=== PATIENT | female | born 1955 | race Caucasian/White ===

== ENCOUNTER 2019-03-13 12:22 | Outpatient (CLI) | payer BC, SELFPAY ==
--- NOTE | 2019-03-13 13:00 | MM_ITS ---
WS: [id number] BILATERAL DIGITAL SCREENING MAMMOGRAPHY WITH CAD CLINICAL INFORMATION: SCREENING HISTORY: Screening mammogram. Right breast soreness. COMPARISON: TECHNIQUE: Bilateral CC and MLO views. FINDINGS: Scattered fibroglandular densities bilaterally. Stable biopsy marker right breast. No suspicious foca l mass, asymmetry, calcifications, or architectural distortion. No evidence of malignancy. MM/[id number] IMPRESSION: BI-RADS: 2-Benign FOLLOW UP: 1 Year Follow-up Recommend return to annual screening mammography.
== END 2019-03-13 12:23 | disposition home or self-care (01) ==
LOC: RADSHAW 12:27
PROVIDERS: Family Provider Family Medicine; PCP Family Medicine; Visit Provider Family Medicine
DX: Z12.31 Encounter for screening mammogram for malignant neoplasm of breast (principal)
CPT/HCPCS: 77067

== ENCOUNTER 2019-04-16 07:07 | Outpatient (CLI) | payer BC, SELFPAY ==
--- NOTE | 2019-04-16 07:15 | XRR_ITS ---
PROCEDURE INFORMATION: Exam: XR Abdomen, 1 View Exam date and time: 04/16/2019 7:27 AM Age: 64 years old Clinical indication: Abd pain; Renal and ureteric calculus TECHNIQUE: Imaging protocol: XR of the abdomen. Views: Frontal supine view of the abdomen. 1 View. COMPARISON: XR ABDOMEN 04/16/2018 8:33 AM FINDINGS: Gastrointestinal tract: No dilated gas-filled loops of bowel. Organs: Clips in the right upper quadrant compatible with a prior cholecystectomy. There is a 3 mm calcific density overlying the inferior pole of the right kidney compatible with right nephrolithiasis. Cannot exclude a distal right ureteral calculus versus small phleboliths in the right pelvis. Bones/joints: Degenerative changes in the lower lumbar spine. XR/XR KUB [id number] IMPRESSION: 1. Right nephrolithiasis. 2. Cannot exclude a distal right ureteral calculus.
== END 2019-04-16 07:08 | disposition home or self-care (01) ==
LOC: RAD 07:13
PROVIDERS: Family Provider Family Medicine; PCP Family Medicine; Visit Provider Urology
DX: N20.2 Calculus of kidney with calculus of ureter (principal)
CPT/HCPCS: 74018; 81001

== ENCOUNTER 2020-04-13 12:21 | Outpatient (CLI) | payer MEDICARE, BC, SELFPAY ==
--- NOTE | 2020-04-13 12:45 | MM_ITS ---
WS: [id number] BILATERAL DIGITAL SCREENING MAMMOGRAPHY WITH CAD CLINICAL INFORMATION: SCREEN HISTORY: Screening mammogram. No current complaints. COMPARISON: March 13, 2019 TECHNIQUE: Bilateral CC and MLO views. FINDINGS: Scattered fibroglandular densities bilaterally. No suspicious focal mass, asymmetry, calcifications, or architectural distortion. No evidence of malignancy. Biopsy clip right breast. Punctate Calcificat ions. MM/[id number] IMPRESSION: BI-RADS: 2-Benign FOLLOW UP: 1 Year Follow-up Recommend return to annual screening mammography.
== END 2020-04-13 12:22 | disposition home or self-care (01) ==
LOC: RADSHAW 12:24
PROVIDERS: PCP Family Medicine; Visit Provider Family Medicine
DX: Z12.31 Encounter for screening mammogram for malignant neoplasm of breast (principal)
CPT/HCPCS: 77067

== ENCOUNTER 2021-04-18 12:08 | Outpatient (CLI) | payer MEDICARE, BC, SELFPAY ==
--- NOTE | 2021-04-18 12:18 | XRR_ITS ---
PROCEDURE INFORMATION: Exam: XR Abdomen Exam date and time: 04/18/2021 12:18 PM Age: 66 years old Clinical indication: Condition or disease; Kidney or ureter condition; Calculus (stone) in kidney and calculus (stone) in ureter; Prior surgery; Surgery type: Gb; Additional info: Stone, bernadette hinds 04/18/21 @ 12:30 pm appt to follow TECHNIQUE: Imaging protocol: XR of the abdomen. Views: Frontal supine view of the abdomen. 1 View. COMPARISON: CR XR KUB [id number] 04/16/2019 7:21 AM FINDINGS: Gastrointestinal tract: Normal. No bowel dilation. Evidence of cholecystectomy Organs: The bilateral kidneys are obscured by colonic contents. Previously noted right renal stone is no longer visible. The left kidney is partially visualized and does not show focal abnormality. Examination is negative for calcified stones in the projection of the urinary outflow tracts. Bones/joints: Unremarkable. XR/XR KUB [id number] IMPRESSION: 1. No acute findings. 2. Status post cholecystectomy 3. Negative for visible radiodense urinary tract stone
== END 2021-04-18 12:09 | disposition home or self-care (01) ==
LOC: RAD 12:14
PROVIDERS: PCP Family Medicine; Visit Provider Urology
DX: N20.0 Calculus of kidney (principal)
CPT/HCPCS: 74018; 81003

== ENCOUNTER 2021-06-09 11:11 | Outpatient (CLI) | payer MEDICARE, BC, SELFPAY ==
--- NOTE | 2021-06-09 11:23 | MM_ITS ---
WS: [id number] BILATERAL SCREENING 3D TOMOSYNTHESIS DIGITAL MAMMOGRAM WITH CAD HISTORY: SCREENING COMPARISON: 04/13/2020, 11/23/2016 and 03/13/2019 Bilateral CC and MLO views submitted. Computer aided detection analyzed. Breast composition: There are scattered areas of fibroglandular density. No suspicious masses, microc alcifications or architectural distortion. Biopsy clip 12:00 RIGHT breast at a posterior depth is unc hanged. 5 mm nodule upper outer quadrant RIGHT breast has been present on prior examinations. LEFT br east is negative. MM/[id number] IMPRESSION: BI-RADS: 2-Benign FOLLOW UP: 1 Year Follow-up
== END 2021-06-09 11:12 | disposition home or self-care (01) ==
PROVIDERS: PCP Family Medicine; Visit Provider Family Medicine
DX: Z12.31 Encounter for screening mammogram for malignant neoplasm of breast (principal)
CPT/HCPCS: 77063; 77067

== ENCOUNTER 2022-06-09 13:02 | Outpatient (CLI) | payer MEDICARE, SELFPAY ==
--- NOTE | 2022-06-09 13:11 | XR_ITS ---
WS: [id number] DEXA (DUAL ENERGY X-RAY ABSORPTIOMETRY) Bone mineral density was performed using a OrbFlex machine. HISTORY: Asymptomatic MENOPAUSAL STATE COMPARISON: None available. Lumbar spine BMD (L1-L4): 1.025 g/cm2 T score: -1.3 Z score: 0.0 Total hip BMD: Left: 0.901 g/cm2. T score: -0.8 Z score: 0.2 Right: 0.875 g/cm2. T score: -1.1 Z score: 0.0 10 year probability of a major osteoporotic fracture is 20.6%. XR/XR DEXA axial skeleton* [id number] IMPRESSION: OSTEOPENIA based upon the WHO classification for females.
--- NOTE | 2022-06-09 13:24 | MM_ITS ---
WS: [id number] BILATERAL SCREENING DIGITAL TOMOSYNTHESIS MAMMOGRAM WITH CAD HISTORY: SCREENING COMPARISON: 06/09/2021, 04/13/2020 and 03/13/2019 Bilateral CC and MLO views with tomosynthesis and synthetic mammography submitted. Computer aided det ection analyzed. Breast composition: There are scattered areas of fibroglandular density. No suspicious masses, microc alcifications or architectural distortion. Benign biopsy clip 12:00 RIGHT breast reidentified. No inc rease in size of the adjacent soft tissue. Benign calcifications. MM/[place] [id number] IMPRESSION: BI-RADS: 2-Benign FOLLOW UP: 1 Year Follow-up
== END 2022-06-09 13:03 | disposition home or self-care (01) ==
PROVIDERS: PCP Family Medicine; Visit Provider Nurse Practitioner Family
DX: Z12.31 Encounter for screening mammogram for malignant neoplasm of breast (principal); Z78.0 Asymptomatic menopausal state
CPT/HCPCS: 77063; 77067; 77080

== ENCOUNTER → 2022-08-25 09:48 | Outpatient (BNVA) | payer MEDICARE, BC, SELFPAY | PROVIDERS: PCP Family Medicine; Visit Provider Dermatology | DX: L92.0 Granuloma annulare (principal) | CPT/HCPCS: 11900 ==

== ENCOUNTER → 2022-10-09 15:53 | Outpatient (BNVA) | payer MEDICARE, BC, SELFPAY | PROVIDERS: PCP Family Medicine; Visit Provider Dermatology | DX: L92.0 Granuloma annulare (principal); L82.1 Other seborrheic keratosis; L57.0 Actinic keratosis | CPT/HCPCS: 17000; 17003; 99213 ==

== ENCOUNTER 2022-11-21 13:42 | Outpatient (CLI) | payer MEDICARE, BC, SELFPAY ==
--- NOTE | 2022-11-21 13:53 | CT_ITS ---
WS: [email or web address] CT SINUSES TECHNIQUE: Noncontrast CT of the paranasal sinuses with coronal and sagittal reformatted images. CLINICAL INFORMATION: CHRONIC SINUSITIS/HEADACHE COMPARISON: None. DLP: [address] scans at [facility] use at least one of these dose optimization techniques: automated e xposure control; mA and/or kV adjustment per patient size (includes targeted exams where dose is matc hed to clinical indication); or iterative reconstruction. FINDINGS: LEFT to RIGHT nasal septal deviation measuring 7 mm with rightward directed spur. Mild narrowing of t he ostiomeatal units bilaterally which remain patent. Paranasal sinuses are well aerated. Frontal sin uses are well aerated. Trace mucosal thickening ethmoid air cells. Maxillary sinuses well aerated. Sp henoid sinuses are patent. Sphenoid ostia are patent. Mastoid air cells are well aerated. Posterior nasopharynx appears normal. Mild cavernous carotid calcification. IMPRESSION: 1. LEFT RIGHT nasal septal deviation measuring 7 mm with rightward directed spur. 2. Paranasal sinuses are well aerated. 3. Mastoid air cells are well aerated.
== END 2022-11-21 13:43 | disposition home or self-care (01) ==
PROVIDERS: PCP Family Medicine; Visit Provider Nurse Practitioner Family
DX: J32.9 Chronic sinusitis, unspecified (principal); J34.2 Deviated nasal septum; J34.89 Other specified disorders of nose and nasal sinuses
CPT/HCPCS: 70486

== ENCOUNTER 2022-12-21 13:08 | Outpatient (CLI) | payer MEDICARE, BC, SELFPAY ==
--- NOTE | 2022-12-21 13:13 | CT_ITS ---
WS: [email or web address] CT HEAD TECHNIQUE: Noncontrast CT of the head obtained from the skullbase to the vertex. CLINICAL INFORMATION: CHRONIC R SIDED HEADACHES/VISION CHANGES COMPARISON: None. DLP: 1034.[address] scans at [facility] use at least one of these dose optimization techniques: automated e xposure control; mA and/or kV adjustment per patient size (includes targeted exams where dose is matc hed to clinical indication); or iterative reconstruction. FINDINGS: No evidence of intracranial hemorrhage or mass effect. Ventricular system and basal cisterns are iglesias nt. Mild small vessel changes with mild parenchymal volume loss. No extra-axial fluid collections. No evidence of mass or mass effect. Paranasal sinuses and mastoid air cells are well aerated. .Normal visualized soft tissues. IMPRESSION: 1. No evidence of intracranial hemorrhage or mass effect. 2. Mild small vessel changes with mild parenchymal volume loss. 3. No acute intracranial findings.
== END 2022-12-21 13:09 | disposition home or self-care (01) ==
LOC: RAD 13:09
PROVIDERS: PCP Family Medicine; Visit Provider Nurse Practitioner Family
DX: R51.9 Headache, unspecified (principal); H53.9 Unspecified visual disturbance
CPT/HCPCS: 70450

== ENCOUNTER → 2023-01-23 13:38 | Outpatient (BNVA) | payer MEDICARE, BC, SELFPAY | PROVIDERS: PCP Family Medicine; Visit Provider Dermatology | DX: L92.0 Granuloma annulare (principal); L82.1 Other seborrheic keratosis; L71.8 Other rosacea | CPT/HCPCS: 99214 ==

== ENCOUNTER 2023-06-11 09:37 | Outpatient (CLI) | payer MEDICARE, BC, SELFPAY ==
--- NOTE | 2023-06-11 09:40 | MM_ITS ---
WS: [email or web address] BILATERAL 3D TOMOSYNTHESIS DIGITAL SCREENING MAMMOGRAPHY WITH CAD CLINICAL INFORMATION: SCREENING HISTORY: Screening mammogram. No current complaints. COMPARISON: 2022 TECHNIQUE: Bilateral CC and MLO views. FINDINGS: Scattered fibroglandular densities bilaterally. No suspicious focal mass, asymmetry, calcifications, or architectural distortion. No evidence of malignancy. A few incidental punctate and lucent centered calcifications. Biopsy marker RIGHT breast unchanged. IMPRESSION: MM/[place] [id number] BI-RADS: 2-Benign FOLLOW UP: 1 Year Follow-up Recommend return to annual screening mammography.
== END 2023-06-11 09:38 | disposition home or self-care (01) ==
LOC: RAD 09:37
PROVIDERS: PCP Family Medicine; Visit Provider Nurse Practitioner Family
DX: Z12.31 Encounter for screening mammogram for malignant neoplasm of breast (principal)
CPT/HCPCS: 77063; 77067

== ENCOUNTER → 2023-10-24 13:03 | Outpatient (BNVA) | payer MEDICARE, BC, SELFPAY | PROVIDERS: PCP Family Medicine; Visit Provider Dermatology | DX: L92.0 Granuloma annulare (principal); L82.1 Other seborrheic keratosis; D48.5 Neoplasm of uncertain behavior of skin; L81.5 Leukoderma, not elsewhere classified; L81.4 Other melanin hyperpigmentation | CPT/HCPCS: 11102; 11900; 99214 ==

== ENCOUNTER → 2023-12-28 08:23 | Outpatient (BNVA) | payer MEDICARE, BC, SELFPAY | PROVIDERS: PCP Family Medicine; Referring Provider Nurse Practitioner Family; Visit Provider Student in an Organized Health Care Education/Training Program | DX: Z12.11 Encounter for screening for malignant neoplasm of colon (principal) | CPT/HCPCS: 99024; 99204 ==

== ENCOUNTER 2024-01-06 14:07 | Emergency (ER) | payer MEDICARE, BC, SELFPAY ==
[2024-01-06 14:18] VITALS: BP 162/79; PULSE 77; RESP 17; TEMP 36.6; O2SAT 97; BMI 27.4
--- NOTE | 2024-01-06 15:14 | CTR_ITS ---
PROCEDURE INFORMATION: Exam: CT Abdomen And Pelvis With Contrast Exam date and time: 01/06/2024 5:13 PM Age: 68 years old Clinical indication: Abdominal pain; Localized; Lower; Prior surgery; Surgery date: 6+ months; Surgery type: Gb; Additional info: Abd pain TECHNIQUE: Imaging protocol: Computed tomography of the abdomen and pelvis with contrast. Radiation optimization: All CT scans at this facility use at least one of these dose optimization techniques: automated exposure control; mA and/or kV adjustment per patient size (includes targeted exams where dose is matched to clinical indication); or iterative reconstruction. Contrast material: OMNI 350; Contrast volume: 100 ml; Contrast route: INTRAVENOUS (IV); COMPARISON: CT kidney stone [id number] 12/01/2017 1:43 PM RADIATION DOSE METRICS: Total DLP (mGy-cm): 540.31 FINDINGS: Coronary arteries: Coronary arterial calcifications are demonstrated. Diaphragm: Small hiatal hernia is demonstrated within the lower mediastinum. Liver: Well-defined and simple appearing incidental hepatic lesion most compatible with a cyst. Liver cyst measurement and location: Cyst within the superolateral left hepatic lobe measuring 27 mm on axial image 15. Liver demonstrates diffuse mild hypodensity. Gallbladder and biliary ducts: The gallbladder has been surgically removed. Surgical clips identified in the gallbladder fossa. No evidence for biliary dilatation. Pancreas: Unremarkable. Spleen: Unremarkable. No splenomegaly. Adrenal glands: Normal. No mass. Kidneys and ureters: Unremarkable. No hydronephrosis or calculi. Stomach and bowel: Severely prominent fluid identified within the bowel, colon and rectum, suggesting severe diarrheal state. Findings compatible with severe infectious or inflammatory gastroenteritis, colitis with wall thickening. Wall thickening identified throughout the large and small bowel with enhancement. Colonic diverticulosis identified, with greatest involvement within the left colon and sigmoid colon regions. No definite visible evidence for focal acute diverticulitis. Appendix: The visualized appendix appears unremarkable. Intraperitoneal space: Diffuse mild generalized abdominal pelvic mesenteric edema. Vasculature: Unremarkable. No abdominal aortic aneurysm. Lymph nodes: No enlarged lymph nodes. Urinary bladder: Unremarkable as visualized. Reproductive: Unremarkable as visualized. Bones/joints: No acute bony abnormality. Mild to moderate generalized bony degenerative changes. Soft tissues: Unremarkable. Other findings: This study is limited by patient's body habitus. CT/CT abdomen pelvis w con* [id number] IMPRESSION: 1. Findings compatible with severe diarrheal state, infectious or inflammatory gastroenteritis and colitis. 2. Hepatic cyst. Possible mild hepatic steatosis. Consider correlation with liver function tests. 3. Colonic diverticulosis. 4. Small sized hiatal hernia.
--- NOTE | 2024-01-06 15:18 | ED_ITS ---
HPI - Abdominal Pain 2 General: Chief Complaint: Abdominal Pain Stated Complaint: tight feeling lower abd, nausua, diarrhea Time Seen by Provider: 01/06/24 15:15 Source: patient Mode of arrival: ambulatory Limitations: no limitations History of Present Illness: 68-year-old female who states that since Sunday she has been having nausea along with some abdominal cramping with some slight diarrhea she states that the cramping sensation seems to come and go she is concerned that she may have a bowel obstruction. She denies any fever she states she has had issues in the past actually scheduled to have EGD and colonoscopy on Sunday on the Associated Symptoms: Reports diarrhea and nausea; Denies chills, dysuria, fever(s) and vomiting Related Data Home Medications Medication Instructions Recorded Confirmed alprazolam 0.5 mg tablet 0.5 mg PO DAILY PRN 04/16/19 12/28/23 aspirin 81 mg tablet,delayed 81 mg PO DAILY 04/16/19 12/28/23 release (Adult Low Dose Aspirin) bupropion HCl 150 mg 24 hr tablet, 150 mg PO BID 04/16/19 12/28/23 extended release cetirizine 10 mg capsule (All Day 10 mg PO DAILY 04/16/19 12/28/23 Allergy (cetirizine)) cranberry concentrate-ascorbic cap PO 04/16/19 12/28/23 acid 140 mg-100 mg capsule (Cranberry Plus Vitamin C) cyclobenzaprine 10 mg tablet 10 mg PO DAILY PRN 04/16/19 12/28/23 glipizide 5 mg tablet 5 mg PO DAILY 04/16/19 12/28/23 lansoprazole 15 mg capsule,delayed 15 mg PO DAILY 04/16/19 12/28/23 release lisinopril 5 mg tablet 5 mg PO DAILY 04/16/19 12/28/23 metformin 500 mg tablet 500 mg PO BID 04/16/19 12/28/23 metoprolol tartrate 25 mg tablet 25 mg PO DAILY 04/18/21 12/28/23 Previous Rx's Medication Instructions Recorded clobetasol 0.05 % topical ointment 1 applic topical BID 2 weeks #60 11/08/22 grams ciprofloxacin HCl 500 mg tablet 500 mg PO BID #14 tabs 01/06/24 (Cipro) metronidazole 500 mg tablet 500 mg PO Q8H 7 days #21 tabs 01/06/24 Allergies Allergy/AdvReac Type Severity Reaction Status Date / Time cefuroxime Allergy Unknown Unknown Verified 01/06/24 14:22 erythromycin base Allergy Unknown Unknown Verified 01/06/24 14:22 codeine Allergy ADR-Gastrointestinal Verified 01/06/24 14:22 Upset hydrochlorothiazide Allergy ADR-Dizzine Verified 01/06/24 14:22 ss Review of Systems 2 Const: Denies: fever(s), chills, body aches or change in appetite ENMT: Denies: throat pain or dental pain Card: Denies: chest pain Resp: Denies: dyspnea GI: Reports: abdominal pain, nausea and diarrhea; Denies: vomiting : Denies: dysuria Musc: Denies: neck pain or back pain Skin/Breast: Denies: rash Neuro: Denies: headache(s) PFSH ED 2 PFSH: Medical History Feeling of incomplete bladder emptying Right renal stone Renal and ureteric calculus Surgical History H/O rectocele repair Hx of cholecystectomy Hx of tubal ligation Family History Mother , AT AGE 81 Stroke Cancer stomach Father , AT AGE 74 Cancer STOMACH Lung disease COPD Other COPD (chronic obstructive pulmonary disease) Social History Smoking and tobacco/nicotine status: never used tobacco/nicotine Alcohol intake: never Substance/Drug Use: never Adopted: No Caregiver/support person: No Lives independently: No Household members: spouse Marital status: Current occupational status: retired Physical Exam 2 Const: COMMON NORMALS: no acute distress, patient oriented x3 and healthy appearing HENMT: COMMON NORMALS: normocephalic and atraumatic HEAD & SCALP: n ormocephalic and atraumatic Eye: COMMON NORMALS: conjunctivae normal CONJUNCTIVA: Yes conjunctivae normal Neck/C-Spine: COMMON NORMALS: full ROM and supple Chest: COMMONS NORMALS: normal inspection of the chest Resp: COMMON NORMALS: normal respiratory effort Cardio: COMMON NORMALS: regular rate, regular rhythm and No murmurs present (Cardio) RATE: regular rate RHYTHM: regular rhythm GI: COMMON NORMALS: Normal to inspection, nondistended, normoactive bowel sounds present, Soft to palpation, non-tender and no masses PALPATION: Yes Soft to palpation Extremity: COMMON NORMALS: normal to inspection and full ROM Neuro: COMMON NORMALS: patient oriented x3, moves all extremities and no focal motor deficits Psych: COMMON NORMALS: mental status grossly normal, Normal thought process present and cooperative THOUGHT PROCESS: Normal thought process present Skin: COMMON NORMALS: no rashes or lesions noted and no wounds GENERAL SKIN EXAM: no rashes or lesions noted Course 2 Vital Signs: Vital signs: Vital Signs Temperature 97.9 F 01/06/24 14:18 Pulse Rate 77 01/06/24 14:18 Respiratory Rate 18 01/06/24 16:01 Blood Pressure 162/79 01/06/24 14:18 Pulse Oximetry 97 01/06/24 14:18 Oxygen Delivery Me thod Room Air 01/06/24 14:18 MDM - Abdominal Pain Medical Decision Making Patient presents with diarrhea CT shows a colitis we will start her on Cipro and Flagyl she is scheduled for colonoscopy on the follow-up as scheduled return to ER if worsening she understands agrees to plan. Medical Records I reviewed the patient's medical records. Lab Data I reviewed the patient's lab results. 01/06/24 15:17 01/06/24 15:17 Labs/Radiology: Radiology Impressions Abdomen/Pelvis CT 01/06/24 15:14 IMPRESSION: 1. Findings compatible with severe diarrheal state, infectious or inflammatory gastroenteritis and colitis. 2. Hepatic cyst. Possible mild hepatic steatosis. Consider correlation with liver function tests. 3. Colonic diverticulosis. 4. Small sized hiatal hernia. Laboratory Results WBC 5.53 10^3/uL (3.29-11.43) 01/06/24 15:17 RBC 4.79 10^6/uL (3.85-5.65) 01/06/24 15:17 Hgb 13.00 g/dL (11.27-16.99) 01/06/24 15:17 Hct 40.5 % (36-47) 01/06/24 15:17 MCV 84.6 fl (85-98) L 01/06/24 15:17 MCH 27.1 pg (27-33) 01/06/24 15:17 MCHC 32.1 g/dL (30-55) 01/06/24 15:17 RDW 13.5 % (12.1-15.1) 01/06/24 15:17 Plt Count 300 10^3/cmm (157-399) 01/06/24 15:17 MPV 9.5 fL (7.4-10.4) 01/06/24 15:17 Neut % (Auto) 37.3 % 01/06/24 15:17 Lymph % (Auto) 46.8 % 01/06/24 15:17 [place] % (Auto) 13.7 % 01/06/24 15:17 Eos % (Auto) 1.6 % 01/06/24 15:17 Baso % (Auto) 0.4 % 01/06/24 15:17 Neut # (Auto) 2.06 10^3/uL (1.8-7.7) 01/06/24 15:17 Lymph # (Auto) 2.6 10^3/uL (0.8-4.8) 01/06/24 15:17 [place] # (Auto) 0.8 10^3/uL (0.2-0.9) 01/06/24 15:17 Eos # (Auto) 0.1 10^3/uL (0.0-0.8) 01/06/24 15:17 Baso # (Auto) 0.0 10^3/uL (0.0-0.1) 01/06/24 15:17 Nucleated RBC % (auto) 0 % 01/06/24 15:17 Nucleated RBCs # 0.0 /100WBC 01/06/24 15:17 Sodium 142 mmol/L (136-145) 01/06/24 15:17 Potassium 4.3 mmol/L (3.5-5.1) 01/06/24 15:17 Chloride 105 mmol/L (98-107) 01/06/24 15:17 Carbon Dioxide 24 mmol/L (22-29) 01/06/24 15:17 Anion Gap 17.3 (5-19) 01/06/24 15:17 BUN 9 mg/dL (8-23) 01/06/24 15:17 Creatinine 0.9 mg/dL (0.5-0.9) 01/06/24 15:17 GFR Calculation 62.3 mL/min (90-130) L 01/06/24 15:17 Glucose 211 mg/dL (65-115) H 01/06/24 15:17 Calculated Osmolality 299 mOsm/kg (285-295) H 01/06/24 15:17 Calcium 9.1 mg/dL (8.5-10.5) 01/06/24 15:17 Total Bilirubin 0.2 mg/dL (0.15-1.2) 01/06/24 15:17 AST 24 U/L (0-32) 01/06/24 15:17 ALT 19 U/L (0-33) 01/06/24 15:17 Alkaline Phosphatase 99 U/L (35-105) 01/06/24 15:17 Total Protein 7.1 g/dL (6.6-8.7) 01/06/24 15:17 Albumin 4.5 g/dL (3.5-5.2) 01/06/24 15:17 Globulin 2.6 g/dL (1.3-4.6) 01/06/24 15:17 Lipase 25 U/L (13-60) 01/06/24 15:17 Urine Color Yellow (Yellow) 01/06/24 17:00 Urine Appearance Clear (CLEAR) 01/06/24 17:00 Urine pH 5.5 (5-7) 01/06/24 17:00 Ur Specific [place] 1.081 (1.005-1.030) H 01/06/24 17:00 Urine Protein Negative (Negative) 01/06/24 17:00 Urine Glucose (UA) Negative (Normal) 01/06/24 17:00 Urine Ketones Negative (Negative) 01/06/24 17:00 Urine Blood Negative (Negative) 01/06/24 17:00 Urine Nitrate Negative (Negative) 01/06/24 17:00 Urine Bilirubin Negative (Negative) 01/06/24 17:00 Urine Urobilinogen 0.2 mg/dL (Negative) 01/06/24 17:00 Ur Leukocyte Esterase Negative (Negative) 01/06/24 17:00 Urine RBC 0-2 /hpf (0-2) 01/06/24 17:00 Urine WBC 0-5 /hpf (0-5) 01/06/24 17:00 Ur Squamous Epith Cells 0-5 /hpf (0-5) 01/06/24 17:00 Amorphous Sediment Not Reportable 01/06/24 17:00 Urine Bacteria None seen /hpf (NONE) 01/06/24 17:00 Hyaline Casts 0-4 /lpf H 01/06/24 17:00 All radiology interpretation(s) finalized by discharge Discharge Plan Discharge Patient Disposition: Home Clinical Impression: Colitis, Diarrhea Condition: Stable Prescriptions: New metronidazole 500 mg tablet 500 mg PO Q8H 7 Days Qty: 21 0RF ciprofloxacin HCl [Cipro] 500 mg tablet 500 mg PO BID Qty: 14 0RF No Action metoprolol tartrate 25 mg tablet 25 mg PO DAILY metformin 500 mg tablet 500 mg PO BID glipizide 5 mg tablet 5 mg PO DAILY bupropion HCl 150 mg tablet extended release 24 hr 150 mg PO BID Cranberry Plus Vitamin C 140-100 mg capsule PO aspirin [Adult Low Dose Aspirin] 81 mg tablet,delayed release (DR/EC) 81 mg PO DAILY lisinopril 5 mg tablet 5 mg PO DAILY lansoprazole 15 mg capsule,delayed release(DR/EC) 15 mg PO DAILY All Day Allergy (cetirizine) 10 mg capsule 10 mg PO DAILY alprazolam 0.5 mg tablet 0.5 mg PO DAILY PRN cyclobenzaprine 10 mg tablet 10 mg PO DAILY PRN clobetasol 0.05 % ointment 1 applic topical BID 14 Days Qty: 60 2RF Rx Instructions: Apply to affected area no more than two weeks per month. Not for face or skin folds. Discharge Orders: Discharge ED (Routine); Ordered 01/06/24 Ordered By: Soniya Cuevas Referrals: Tatyana Wright MD [Primary Care Provider] - 4-7 days Discharge Diet: Advance as tolerated Discharge Activity: Resume usual activity Patient Instructions: Diarrhea - Adult, Colitis (ED) Coding Level of Care Code ED Data Integrity Consultant for Gilberto Dee
[2024-01-06 15:33] LABS: Basophils % 0.4 %; Eosinophils # 0.1 10^3/uL (0.0-0.8); Eosinophils % 1.6 %; Hematocrit 40.5 % (36-47); Lymphocytes # 2.6 10^3/uL (0.8-4.8); Lymphocytes % 46.8 %; Mean Corpuscular HGB Conc 32.1 g/dL (30-55); Mean Corpuscular Hemoglobin 27.1 pg (27-33); Mean Corpuscular Volume 84.6 fl (85-98); Mean Platelet Volume 9.5 fL (7.4-10.4); Monocytes # 0.8 10^3/uL (0.2-0.9); Monocytes % 13.7 %; Neutrophils # 2.06 10^3/uL (1.8-7.7); Neutrophils % 37.3 %; Nucleated Red Blood Cells % 0 %; Platelet Count 300 10^3/cmm (157-399); Red Blood Count 4.79 10^6/uL (3.85-5.65); Red Cell Distribution Width 13.5 % (12.1-15.1); White Blood Count 5.53 10^3/uL (3.29-11.43)
[2024-01-06] MEDS: ondansetron 2 mg/ML SDV 2 mL 4 MG IVP (15:38)
[2024-01-06 16:01] VITALS: RESP 18
[2024-01-06 16:05] LABS: Alanine Aminotransferase 19 U/L (0-33); Albumin Level 4.5 g/dL (3.5-5.2); Alkaline Phosphatase 99 U/L (35-105); Anion Gap 17.3 (5-19); Aspartate Amino Transferase 24 U/L (0-32); Blood Urea Nitrogen 9 mg/dL (8-23); Calcium 9.1 mg/dL (8.5-10.5); Carbon Dioxide 24 mmol/L (22-29); Chloride 105 mmol/L (98-107); Creatinine Clr Calc Pharmacy 58.4139; Globulin 2.6 g/dL (1.3-4.6); Glomerular Filtration Rate 62.3 mL/min (90-130); Glucose 211 mg/dL (65-115); Osmolality Calculated 299 mOsm/kg (285-295); Potassium 4.3 mmol/L (3.5-5.1); Sodium 142 mmol/L (136-145); Total Bilirubin 0.2 mg/dL (0.15-1.2); Total Protein 7.1 g/dL (6.6-8.7)
[2024-01-06 16:09] LABS: Lipase 25 U/L (13-60)
[2024-01-06] MEDS: iohexol 350 mg/mL 500 mL Btl (per mL) IV (16:19)
[2024-01-06 17:17] LABS: Bilirubin Urine Negative (Negative); Blood Urine Negative (Negative); Glucose Urine UA Negative (Normal); Ketones Urine Negative (Negative); Leukocyte Esterase Urine Negative (Negative); Nitrate Urine Negative (Negative); Protein Urine Negative (Negative); Urine Appearance Clear (CLEAR); Urine Color Yellow (Yellow); Urobilinogen Urine 0.2 mg/dL (Negative); pH Urine 5.5 (5-7)
[2024-01-06 17:22] LABS: Add Urine Microscopic? YES; Bacteria Urine None Seen /hpf; Hyaline Casts Urine 0-4 /lpf; RBC Urine 0-2 /hpf (0-2); Squamous Epithelial Cell Urine 0-5 /hpf (0-5); WBC Urine 0-5 /hpf (0-5)
[2024-01-06 17:24] LABS: Specific Gravity, Urine 1.081 (1.005-1.030)
== END 2024-01-06 17:43 | disposition home or self-care (01) ==
PROVIDERS: Emergency Provider Emergency Medicine; PCP Family Medicine
DX: K52.9 Noninfective gastroenteritis and colitis, unspecified (principal); Z79.84 Long term (current) use of oral hypoglycemic drugs
CPT/HCPCS: 36415; 74177; 80053; 81001; 83690; 85025; 96374; 99285; J2405

== ENCOUNTER 2024-01-14 10:37 | Day surgery (SDC) | payer MEDICARE, BC, SELFPAY ==
[2024-01-14 10:53] VITALS: BP 152/82; PULSE 68; RESP 17; TEMP 36.3; O2SAT 98; BMI 27.4
[2024-01-14] MEDS: sodium chloride 0.9% 1,000 ML 30 ML IV (10:59)
[2024-01-14 11:03] LABS: Glucose Point of Care 142 mg/dL (70-110)
--- NOTE | 2024-01-14 11:54 | W.PM.OPSUD ---
Surgery/Procedure H&P Update DATE OF PROCEDURE: January 14, 2024 DATE H&P PERFORMED: 12/28/23 H&P UPDATE INFORMATION: I have reviewed H&P completed within last 30 days, I have examined patient prior to procedure and No changes to prior documentation PLANNED PROCEDURE: Operation Date: 01/14/24 11:45 Proposed Procedures p EGD- 63071, G0121,03510,Z12.11,R12.00(Not Applicable) - Will Kaplan MD s Colonoscopy(Not Applicable) - Will Kaplan MD
--- NOTE | 2024-01-14 11:57 | ANES.PREANE2 ---
Pre-Anesthetic Assessment Height/Weight: Height 1.63 m Weight 72.575 kg Temp Pulse Resp BP Pulse Ox O2 Del Method 97.4 F L 68 17 152/82 98 Room Air 01/14/24 10:53 01/14/24 10:53 01/14/24 10:53 01/14/24 10:53 01/14/24 10:53 01/14/24 10:53 Operation Date: 01/14/24 11:45 Proposed Procedures p EGD- 56148, G0121,32888,Z12.11,R12.00(Not Applicable) - Will Kaplan MD s Colonoscopy(Not Applicable) - Will Kaplan MD Familial anesthetic complications: none Was Beta Emerson taken within 24 hours: N/A Was Clonidine taken within 24 hours: N/A Last intake: Intake Last Liquid Date 01/13/24 Last Liquid Time 21:00 Last Solid Date 01/12/24 Last Solid Time 20:00 Social No alcohol and No tobacco Exam alert and oriented x 3 Airway Submandibular: within normal limits Cervical ROM: within normal limits Mallampati: Class I Dentition: full History/ROS No significant history except as noted Pulmonary Asthma CV/HEM Hypertension None reported Hepatic None reported GI Gastroesophageal Reflux Disease Metabolic Diabetes Mellitus and Hyperlipidemia [facility] [place] Lower Back Pain Neuropsych None reported Anesthetic Plan ASA status: 3 Anesthesia: Anesthesia Evaluation and MAC Medications/Allergies Home Medications Medication Instructions Recorded Confirmed Last Taken Type alprazolam 0.5 mg tablet 0.5 mg PO DAILY PRN Insomnia 04/16/19 01/14/24 1 Year Ago History ~01/08/23 aspirin 81 mg tablet,delayed 81 mg PO DAILY 04/16/19 01/14/24 01/13/24 09:00 History release (Adult Low Dose Aspirin) bupropion HCl 150 mg 24 hr tablet, 150 mg PO BID 04/16/19 01/14/24 01/13/24 09:00 History extended release cetirizine 10 mg capsule (All Day 10 mg PO DAILY 04/16/19 01/14/24 01/13/24 09:00 History Allergy (cetirizine)) cranberry concentrate-ascorbic 2 cap PO BID 04/16/19 01/14/24 01/13/24 09:00 History acid 140 mg-100 mg capsule (Cranberry Plus Vitamin C) cyclobenzaprine 10 mg tablet 10 mg PO DAILY PRN Muscle Spasm 04/16/19 01/14/24 3 Weeks Ago History ~12/19/23 glipizide 5 mg tablet 5 mg PO DAILY 04/16/19 01/14/24 01/13/24 09:00 History lansoprazole 15 mg capsule,delayed 15 mg PO DAILY 04/16/19 01/14/24 01/13/24 09:00 History release lisinopril 5 mg tablet 5 mg PO DAILY 04/16/19 01/14/24 01/13/24 09:00 History metformin 500 mg tablet 1,000 mg PO BEDTIME 04/16/19 01/14/24 01/13/24 09:00 History metoprolol tartrate 25 mg tablet 25 mg PO DAILY 04/18/21 01/14/24 01/14/24 History clobetasol 0.05 % topical ointment 1 applic topical BID 2 weeks #60 11/08/22 01/14/24 01/09/24 Rx grams ciprofloxacin HCl 500 mg tablet 500 mg PO BID #14 tabs 01/06/24 01/14/24 01/12/24 Rx (Cipro) albuterol 90 mcg/actuation aerosol 90 mcg inhalation Q4H PRN allergies 01/09/24 01/14/24 01/14/24 History inhaler vitamin B6-vitamin E-magnesium 1 tab PO DAILY 01/09/24 01/14/24 01/13/24 09:00 History tablet Allergies Allergy/AdvReac Type Severity Reaction Status Date / Time cefuroxime Allergy Severe ALGY-Hives Verified 01/09/24 12:07 codeine Allergy Intermediate ADR-Gastrointestinal Verified 01/09/24 12:07 Upset erythromycin base AdvReac Severe ADR-Vomitin Verified 01/09/24 12:07 g hydrochlorothiazide AdvReac ADR-Dizzine Verified 01/09/24 12:07 ss Current Medications Generic Name Dose Route Start Last Admin Trade Name Freq PRN Reason Stop Dose Admin Sodium Chloride 1,000 mls @ 30 mls/hr 01/14/24 10:45 01/14/24 10:59 Sodium Chloride 0.9% IV 01/15/24 10:44 30 mls/hr .Q24H JAMI Administration PFSH Anesthesia Medical History Feeling of incomplete bladder emptying Right renal stone Renal and ureteric calculus Surgical History H/O rectocele repair Hx of cholecystectomy Hx of tubal ligation Family History Mother , AT AGE 81 Stroke Cancer stomach Father , AT AGE 74 Cancer STOMACH Lung disease COPD Other COPD (chronic obstructive pulmonary disease) Social History Smoking and tobacco/nicotine status: never used tobacco/nicotine Alcohol intake: never Substance/Drug Use: never Adopted: No Caregiver/support person: No Lives independently: No Household members: spouse Marital status: Current occupational status: retired Data Anesthesia Cardiac Studies: No Data to Display
[2024-01-14 12:20] VITALS: BP 134/68; PULSE 67; RESP 18; TEMP 36.2; O2SAT 91
[2024-01-14 12:25] VITALS: BP 129/69; PULSE 67; RESP 18; O2SAT 91
[2024-01-14 12:35] VITALS: BP 113/67; PULSE 68; RESP 18; O2SAT 96
--- NOTE | 2024-01-14 13:07 | ANE.PACU2 ---
Inpatient post-anesthesia follow up: Airway intact: Yes Vital signs: Temperature 97.1 F Pulse Rate 68 Respiratory Rate 18 Blood Pressure 113/67 Pulse Oximetry 96 Oxygen Delivery Me thod Room Air Oxygen Flow Rate Fraction of Inspir ed Oxygen Hydration adequate: Yes Nausea and vomiting: No Pain level: 1 Mental status: Baseline
== END 2024-01-14 13:07 | disposition home or self-care (01) ==
PROVIDERS: PCP Family Medicine; Visit Provider Student in an Organized Health Care Education/Training Program
PROC: 0DJ08ZZ Inspection of Upper Intestinal Tract, Via Natural or Artificial Opening Endoscopic (ICD-10-PCS; CPT 43235; principal; 2024-01-14 11:45)
PROC: 0DJD8ZZ Inspection of Lower Intestinal Tract, Via Natural or Artificial Opening Endoscopic (ICD-10-PCS; CPT 45378; 2024-01-14 11:45)
DX: Z12.11 Encounter for screening for malignant neoplasm of colon (principal); R12 Heartburn; K57.30 Diverticulosis of large intestine without perforation or abscess without bleeding; K29.50 Unspecified chronic gastritis without bleeding; I10 Essential (primary) hypertension; E11.9 Type 2 diabetes mellitus without complications; E78.5 Hyperlipidemia, unspecified; Z79.82 Long term (current) use of aspirin; Z79.84 Long term (current) use of oral hypoglycemic drugs
CPT/HCPCS: 36416; 43239; 82962; 88305; 88342; G0121; J2704; J7030

== ENCOUNTER → 2024-01-24 08:29 | Outpatient (BNVA) | payer MEDICARE, BC, SELFPAY | PROVIDERS: PCP Family Medicine; Visit Provider Student in an Organized Health Care Education/Training Program | DX: Z09 Encounter for follow-up examination after completed treatment for conditions other than malignant neoplasm (principal) | CPT/HCPCS: 99213 ==

== ENCOUNTER → 2024-04-08 14:31 | Outpatient (BNVA) | payer MEDICARE, BC, SELFPAY | PROVIDERS: PCP Family Medicine; Visit Provider Dermatology | DX: L92.0 Granuloma annulare (principal); L82.1 Other seborrheic keratosis; L71.8 Other rosacea; I78.8 Other diseases of capillaries; L57.3 Poikiloderma of Civatte; L94.8 Other specified localized connective tissue disorders | CPT/HCPCS: 99214 ==

== ENCOUNTER 2024-06-19 10:36 | Outpatient (CLI) | payer MEDICARE, BC, SELFPAY ==
--- NOTE | 2024-06-19 10:40 | MM_ITS ---
WS: [id number] BILATERAL SCREENING DIGITAL TOMOSYNTHESIS MAMMOGRAM WITH CAD HISTORY: SCREENING COMPARISON: 06/11/2023, 04/13/2020 Bilateral CC and MLO views with tomosynthesis and synthetic mammography submitted. Computer aided detection analyzed. Breast composition: There are scattered areas of fibroglandular density. No suspicious masses, microcalcifications or architectural distortion. Few scattered calcifications. Biopsy marker in the central RIGHT breast at 12:00 is unchanged. No new mass or calcification. MM/MM scr tomosynthesis [id number] IMPRESSION: BI-RADS: 2 - Benign. FOLLOW UP: 1 Year Follow-up
== END 2024-06-19 10:37 | disposition home or self-care (01) ==
PROVIDERS: PCP Nurse Practitioner Family; Visit Provider Nurse Practitioner Family
DX: Z12.31 Encounter for screening mammogram for malignant neoplasm of breast (principal); R92.323 Mammographic fibroglandular density, bilateral breasts; R92.1 Mammographic calcification found on diagnostic imaging of breast
CPT/HCPCS: 77063; 77067

== ENCOUNTER → 2025-01-10 11:37 | Outpatient (BNVA) | payer MEDICARE, BC, SELFPAY | PROVIDERS: PCP Nurse Practitioner Family; Visit Provider Family Medicine | DX: R39.89 Other symptoms and signs involving the genitourinary system (principal) | CPT/HCPCS: 81000 ==